=== PATIENT | male | born 1970 | race Caucasian/White ===

== ENCOUNTER 2021-06-05 13:54 | Emergency (ER) | payer SELFPAY ==
[~2021-06-05] VITALS: Ht 172.7 cm; Wt 128.5 kg
--- NOTE | 2021-06-05 14:33 | EKG ---
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
[2021-06-05 14:46] LABS: BASO % 0 % (0-3); EOS % 0 % (0-3); HEMATOCRIT 42.8 % (39.0-53.0); HEMOGLOBIN 14.3 g/dL (13.0-17.5); LYMPH # 0.5 x10^3/uL (1.0-4.8); LYMPH % 4 % (24-48); MEAN CORPUSCULAR HEMOGLOBIN 31 pg (25-35); MEAN CORPUSCULAR HGB CONC 33 g/dL (31-37); MEAN CORPUSCULAR VOLUME 92 fL (79-100); MONO # 0.3 x10^3/uL (0.0-1.1); MONO % 2 % (0-9); NEUT # 12.7 x10^3uL (1.8-7.7); NEUT % 94 % (31-73); PLATELET COUNT 219 x10^3/uL (140-400); RED BLOOD COUNT 4.67 x10^6/uL (4.30-5.70); RED CELL DISTRIBUTION WIDTH 15.1 % (11.5-14.5); WHITE BLOOD COUNT 13.6 x10^3/uL (4.0-11.0)
[2021-06-05 14:47] LABS: CALCIUM 7.9 mg/dL (8.5-10.1); CREATININE 2.5 mg/dL (0.7-1.3); GFR 27.2; POTASSIUM 4.7 mmol/L (3.5-5.1)
[2021-06-05] MEDS ORDERED: BUDESONIDE 0.5 MG/2 ML NEBU ONE (14:49)
--- NOTE | 2021-06-05 14:54 | RAD ---
Site ID: [id number] EXAMINATION: XR CHEST 1V. HISTORY: 51 years Male Reason: Shortness of breath. COMPARISON: None. Findings: Multifocal bilateral pneumonia is seen. The heart size is normal. There is no effusion or p neumothorax. The mediastinum and dolly appear unremarkable. Impression: Bilateral multifocal infiltrates. Electronically signed by: Kalyan Hampton MD (06/05/2021 2:51 PM) [id number]
[2021-06-05 15:00] LABS: ALBUMIN 2.8 g/dL (3.4-5.0); ALBUMIN/GLOBULIN RATIO 0.6 (1.0-1.7); TOTAL BILIRUBIN 0.5 mg/dL (0.2-1.0); TOTAL PROTEIN 7.4 g/dL (6.4-8.2)
--- NOTE | 2021-06-05 15:39 | RAD ---
AP portable chest radiograph 06/04/2021 Clinical History: Postintubation. Two AP portable digital radiographs of the chest were obtained. Comparison study is dated earlier the same day at 1429 hours. An ET tube has been placed. The tip of this tube overlies the trachea 1 cm below the level of the cla vicles. The cardiac silhouette is borderline enlarged. The thoracic aorta is mildly tortuous. Bilater al perihilar infiltrates are again seen. No pleural effusion or definite pneumothorax is noted. The o sseous structures are unchanged. Impression: The tip of the ET tube overlies the trachea 1 cm below the level of the clavicles. Electronically signed by: Emanuel Villa MD (06/05/2021 3:37 PM) [id number]
[2021-06-05] MEDS ORDERED: ETOMIDATE 40 MG/20 ML VIAL. ONE (16:00)
[2021-06-05] MEDS ORDERED: MIDAZOLAM HCL PF 5 MG/5 ML VIAL. ONE (16:00)
[2021-06-05] MEDS ORDERED: ROCURONIUM IV ONE ×2 (16:00→17:30)
[2021-06-05] MEDS ORDERED: NORMAL SALINE IV ONE ×2 (16:00→17:30)
[2021-06-05] MEDS ORDERED: ROCURONIUM 50 MG/5 ML VIAL. ONE (16:00)
[2021-06-05 16:11] LABS: BGAS PH 7.4 (7.35-7.46)
[2021-06-05] MEDS ORDERED: FUROSEMIDE 100 MG/10 ML VIAL IVP ONE (16:15)
[2021-06-05] MEDS: MIDAZOLAM HCL 50 MG in IV NORMAL SALINE 50ML 50 ML IV PRN ×2 (16:33→18:55)
[2021-06-05] MEDS ORDERED: ACETAMINOPHEN 650 MG SUPP.RECT. PR ONE (17:00)
[2021-06-05 17:40] LABS: INFLUENZA A PATIENT NEGATIVE (NEGATIVE); INFLUENZA B PATIENT NEGATIVE (NEGATIVE)
[2021-06-05] MEDS ORDERED: PANTOPRAZOLE IV 40 MG VIAL. IVP ONE (17:45)
[2021-06-05] MEDS ORDERED: PIPERACILLIN/TAZOBACTAM 3.375 GM in IV NORMAL SALINE 50ML 50 ML IV ONE (17:45)
[2021-06-05] MEDS ORDERED: VANCOMYCIN 2 GM in IV NORMAL SALINE 500ML 500 ML IV ONE (17:45)
[2021-06-05] MEDS ORDERED: ENOXAPARIN ** NOTE DOSE ** SYRINGE SQ ONE (17:45)
[2021-06-05] MEDS ORDERED: DEXAMETHASONE SOD PHOS 4 MG/ML VIAL. IVP ONE (18:00)
[2021-06-05] MEDS ORDERED: IV NORMAL SALINE 50ML 50 ML ONE (18:29)
[2021-06-05] MEDS ORDERED: PIPERACILLIN/TAZOBACTAM 3.375 GM VIAL IV ONE (18:29)
[2021-06-05 18:34] VITALS: BP 94/69
== END 2021-06-05 19:08 | disposition short-term general hospital (02) ==
LOC: ER 13:54
DX: U07.1 COVID-19 (principal); J96.00 Acute respiratory failure, unspecified whether with hypoxia or hypercapnia; I21.4 Non-ST elevation (NSTEMI) myocardial infarction; R74.8 Abnormal levels of other serum enzymes
CPT/HCPCS: 31500; 36415; 51702; 71045; 80053; 82803; 83605; 83880; 84484; 85025; 87040; 87426; 87804; 93005; 94640; 94660; 96365; 96372; 96375; 99291; C9113; J1100; J1650; J2250; J2543; 94002